=== PATIENT | female | born 1980 | race Caucasian/White ===

== ENCOUNTER 2019-06-14 12:40 | Emergency (ER) | payer SELFPAY ==
[~2019-06-14] VITALS: Ht 162.6 cm; Wt 54.5 kg
[2019-06-14 12:41] VITALS: BP 149/83; PULSE 103; RESP 20; Ht 162.6 cm; Wt 54.5 kg
== END 2019-06-14 13:37 | disposition left against medical advice (07) ==
LOC: E/R 12:40
DX: Z53.21 Procedure and treatment not carried out due to patient leaving prior to being seen by health care provider (principal)